=== PATIENT | male | born 1955 | race Caucasian/White ===

== ENCOUNTER 2017-03-08 15:34 | Emergency (ER) | payer BC ==
[2017-03-08] MEDS ORDERED: Fluorescein Sodium TOPICAL* 1 MG TEST OPHTHALMIC ONE (18:14)
[2017-03-08] MEDS ORDERED: Tetracaine 0.5% OPTH.SOL 4 ML* 1 DROP BTL LEFT EYE ONE (18:15)
--- NOTE | 2017-03-08 18:15 | UC ---
Eye Complaint HPI - HPI Summary HPI Summary: Pt presents with right eye pain since last night. He tells me that last night his eye itched, so he scratched it - had immediate pain. He let it go last night , but this morning it was still painful with he is blinking. Feels like there is something stuck under his eyelid. Denies vision changes, headache, dizziness , or other pain. Does not wear contacts. - History of Current Complaint Chief Complaint: UCEye Stated Complaint: EYE COMPLAINT Hx Obtained From: Patient Onset/Duration: Sudden Onset Timing: Constant Severity Initially: Moderate Severity Currently: Moderate Pain Intensity: 7 Pain Scale Used: 0-10 Numeric Location of Injury: Eye Lid (upper), Sclera Character: Foreign Body Sensation Aggravating Factor(s): Nothing - Allergies/Home Medications Allergies/Adverse Reactions: Allergies Allergy/AdvReac Type Severity Reaction Status Date / Time No Known Allergies Allergy Verified 03/08/17 16:49 Home Medications: Home Medications NK [No Home Medications Reported] 03/08/17 [History Confirmed 03/08/17] PMH/Surg Hx/FS Hx/Imm Hx Cardiovascular History: Cardiac Disease, Hypertension - Surgical History Surgical History: Yes Surgery Procedure, Year, and Place: LAZY EYE SURGERY BILATERAL IN 1960s - Family History Known Family History: Positive: Unknown - Social History Lives: With Family Alcohol Use: None Substance Use Type: None Smoking Status (MU): Former Smoker Review of Systems Constitutional: Negative Skin: Negative Eyes: Other - Right eye pain Respiratory: Negative Cardiovascular: Negative Neurological: Negative Psychological: Negative All Other Systems Reviewed And Are Negative: Yes Physical Exam Triage Information Reviewed: Yes Appearance: Well-Appearing, No Pain Distress, Well-Nourished Vital Signs: Initial Vital Signs Temp 97.1 F 03/08/17 16:42 Pulse 76 03/08/17 16:42 Resp 16 03/08/17 16:42 BP 178/93 03/08/17 16:42 Pulse Ox 98 03/08/17 16:42 Vital Signs Reviewed: Yes Eyes: Positive: Conjunctiva Clear, Other: - OD/OS/OU 25/20. Right eye fluorescein exam revealed no scratches, areas of uptake, or eulogio sign. Eyelids were inverted and revealed no FB or nodules. EOMI. PERRLA. Negative: Conjunctiva Inflamed, Discharge Neck: Positive: Supple, Nontender, No Lymphadenopathy Respiratory: Positive: Lungs clear, Normal breath sounds, No respiratory distress, No accessory muscle use Cardiovascular: Positive: RRR, No Murmur, Pulses Normal Neurological: Positive: Alert, Other: - CN II-XII grossly intact Psychological: Positive: Age Appropriate Behavior Eye Complaint Course/Dx - Course Course Of Treatment: No obvious source of his pain on exam today. His pain was relieved after one drop of tetracaine. I will cover him with Polytrim and advise he f/u with his eye doctor tomorrow. - Differential Dx/Diagnosis Provider Diagnoses: Right eye pain Discharge - Discharge Plan Condition: Stable Disposition: HOME Patient Education Materials: Corneal Abrasion (ED) Referrals: Shannon Villarreal MD [Primary Care Provider] - Dk Trevino MD [Medical Doctor] - As Soon As Possible Additional Instructions: If you develop a fever, shortness of breath, chest pain, new or worsening symptoms - please call your PCP or go to the ED. 1) If you experience decreased vision, increased pain or swelling of your head, dizziness, or headache - please go to the ER or call 911. 2) Please call your eye doctor and schedule an appointment within the next 2 days for recheck.
[2017-03-08] MEDS ORDERED: Fluorescein Sod TOPICAL 0.6* 0.6 MG TEST OPHTHALMIC ONE (18:22)
[2017-03-08] MEDS ORDERED: Polymyx/Trimethoprim OPTH* 10 ML BTL RIGHT EYE ONE (18:46)
[2017-03-08 18:48] VITALS: BP 182/90
== END 2017-03-08 18:59 | disposition home or self-care (01) ==
LOC: UCEAST 15:34
DX: H57.11 Ocular pain, right eye (principal); Z87.891 Personal history of nicotine dependence
CPT/HCPCS: 99212; A9270-GY; G0463

== ENCOUNTER 2017-06-10 14:06 | Emergency (ER) | payer BC, OTHER ==
--- NOTE | 2017-06-10 14:45 | UC ---
Lower Extremity/Ankle HPI - HPI Summary HPI Summary: Pt presents with right foot pain s/p dropping a board on it at 1330 today. He was wearing steel toe boots when this happened. Says the board was thick and dropped from about 2 feet above his foot. Currently pain is a 1-2, but has some bruising and swelling. Denies numbness or tingling. Is ambulating without assistance - History of Current Complaint Stated Complaint: FOOT INJURY Time Seen by Provider: 06/10/17 14:45 Hx Obtained From: Patient Onset/Duration: Sudden Onset Severity Initially: Mild Severity Currently: Mild Pain Intensity: 2 Pain Scale Used: 0-10 Numeric Aggravating Factor(s): Standing, Ambulation Alleviating Factor(s): Rest, Elevation Able to Bear Weight: Yes Related History: Occupational Injury - Allergies/Home Medications Allergies/Adverse Reactions: Allergies Allergy/AdvReac Type Severity Reaction Status Date / Time No Known Allergies Allergy Verified 06/10/17 14:51 PMH/Surg Hx/FS Hx/Imm Hx - Additional Past Medical History Additional PMH: None Previously Healthy: Yes - Surgical History Surgical History: Yes Surgery Procedure, Year, and Place: LAZY EYE SURGERY BILATERAL IN 1960s - Family History Known Family History: Positive: Unknown - Social History Occupation: Employed Full-time Lives: With Family Alcohol Use: None Substance Use Type: None Smoking Status (MU): Former Smoker Review of Systems Constitutional: Negative Skin: Bruising - Right foot Respiratory: Negative Cardiovascular: Negative Neurovascular: Negative Musculoskeletal: Other: - Right foot pain Neurological: Negative Psychological: Negative All Other Systems Reviewed And Are Negative: Yes Physical Exam - Summary Physical Exam Summary: GENERAL: NAD. WDWN. No pain distress. SKIN: No rashes, sores, lesions, or open wounds. NECK: Supple. Nontender. No lymphadenopathy. CHEST: No accessory muscle use. Breathing comfortably and in no distress. CV: RRR. Without m/r/g. Pulses intact PT and DP. Brisk cap refill. MSK: Mild TTP over right dorsal midfoot. FROM. Strength 5/5. Mild edema and overlying ecchymosis. No obvious bony deformities. NEURO: Alert. Sensations intact and symmetric B/L LEs PSYCH: Age appropriate behavior. Triage Information Reviewed: Yes Lower Extremity Course/Dx - Course Course Of Treatment: XR: IMPRESSION: NO ACUTE BONY FINDINGS. SOFT TISSUE SWELLING OVER THE MID AND FOREFOOT. HALLUX VALGUS DEFORMITY. - Differential Dx/Diagnosis Provider Diagnoses: Right foot contusion Discharge - Sign-Out/Discharge Documenting (check all that apply): Discharge/Admit/Transfer - Discharge Plan Condition: Stable Disposition: HOME Patient Education Materials: Foot Contusion (ED) Forms: *Work Release Referrals: Shannon Villarreal MD [Primary Care Provider] - Additional Instructions: If you develop a fever, shortness of breath, chest pain, new or worsening symptoms - please call your PCP or go to the ED. Your blood pressure was high at todays visit. Please see your primary provider within 4 weeks for recheck and re-evaluation. 1) Rest, Ice, and Elevate your foot as much as possible over the next 24-48hours 2) May take tylenol of ibuprofen every 6-8hours as needed for pain - Billing Disposition and Condition Condition: STABLE Disposition: HOME
[2017-06-10 14:51] VITALS: BP 170/85
--- NOTE | 2017-06-10 15:23 | RAD ---
INDICATION: Right foot pain COMPARISON: None TECHNIQUE: AP, lateral, and oblique views were obtained. FINDINGS: There are no acute bony findings. There is a prominent hallux valgus deformity with minor osteocytic change about the first MTP joint. There are mild hammertoe deformities. There is soft tissue swelling over the dorsum of the mid and forefoot. IMPRESSION: NO ACUTE BONY FINDINGS. SOFT TISSUE SWELLING OVER THE MID AND FOREFOOT. HALLUX VALGUS DEFORMITY
== END 2017-06-10 15:35 | disposition home or self-care (01) ==
LOC: UCEAST 14:06
DX: S90.31XA Contusion of right foot, initial encounter (principal); W20.8XXA Other cause of strike by thrown, projected or falling object, initial encounter; Y93.H3 Activity, building and construction; Y92.830 Public park as the place of occurrence of the external cause; Y99.0 Civilian activity done for income or pay; M20.11 Hallux valgus (acquired), right foot; Z87.891 Personal history of nicotine dependence
CPT/HCPCS: 99211; G0463

== ENCOUNTER 2018-06-02 14:42 | Emergency (ER) | payer OTHER ==
[2018-06-02] MEDS ORDERED: Lidocaine 1%* 5 ML VIAL INJ ONE (16:33)
[2018-06-02] MEDS ORDERED: Tetan/Diph/Pertus SYR(Tdap)* 0.5 ML SYR(BOOSTRIX) use SYR IM ONE (16:44)
--- NOTE | 2018-06-02 17:32 | ED ---
Laceration/Wound HPI - HPI Summary HPI Summary: Patient is a 62-year-old male who presents emergency department for laceration to his left thumb that occurred just prior to arrival. Patient states he was using a table saw to cut wood when he actually cut left thumb. He is unaware of his last tetanus immunization. No significant past medical history. Symptoms are mild in severity. Touching affected area makes symptoms worse. Rest makes symptoms better. - History of Current Complaint Stated Complaint: LEFT THUMB LACERATION PER PT Time Seen by Provider: 06/02/18 16:34 Hx Obtained From: Patient Pain Intensity: 5 - Allergy/Home Medications Allergies/Adverse Reactions: Allergies Allergy/AdvReac Type Severity Reaction Status Date / Time No Known Allergies Allergy Verified 06/02/18 14:50 PMH/Surg Hx/FS Hx/Imm Hx Previously Healthy: Yes Endocrine/Hematology History: Denies: Hx Diabetes Cardiovascular History: Reports: Hx Hypertension - INTERMITTENTLY MEDICATED Denies: Hx Congestive Heart Failure, Hx Pacemaker/ICD, Other Cardiovascular Problems/Disorders - DENIES Respiratory History: Denies: Other Respiratory Problems/Disorders - DENIES History: Denies: Hx Renal Disease Sensory History: Denies: Hx Hearing Aid Psychiatric History: Denies: Hx Panic Disorder - Surgical History Surgery Procedure, Year, and Place: LAZY EYE SURGERY BILATERAL IN 1960s Infectious Disease History: No Infectious Disease History: Denies: Traveled Outside the [place] in Last 30 Days - Family History Known Family History: Positive: Unknown, Non-Contributory - Social History Occupation: Employed Full-time Lives: With Family Alcohol Use: None Substance Use Type: Reports: None Smoking Status (MU): Former Smoker Review of Systems Positive: Other - laceration to left thumb Negative: Weakness, Paresthesia, Numbness All Other Systems Reviewed And Are Negative: Yes Physical Exam Triage Information Reviewed: Yes Vital Signs On Initial Exam: Initial Vitals Temp Pulse Resp BP Pulse Ox 99.2 F 81 18 204/99 95 06/02/18 14:46 06/02/18 14:46 06/02/18 14:46 06/02/18 14:46 06/02/18 14:46 Vital Signs Reviewed: Yes Appearance: Positive: Well-Appearing - Pt. sitting on bed in NAD. Daughter present. Skin: Positive: Warm, Dry Head/Face: Positive: Normal Head/Face Inspection Eyes: Positive: Normal, EOMI Neck: Positive: Supple Musculoskeletal: Positive: Other - 3 cm linear laceration noted to the distal aspect of left thumg on the palmar aspect. Avulsion noted to center of wound given saw injury. No bony tenderness on palpation. Full ROM with flexion and extension. Neurological: Positive: Normal, CN Intact II-III Psychiatric: Positive: Affect/Mood Appropriate Procedures - Laceration/Wound Repair 1 Location: upper extremity - left thumb Description: Linear Anesthesia: Local, 1.0% Length, Depth and Shape: 3 cm linear Betadine Prep?: No - hibiclens Irrigated w/ Saline (ccs): 150 Laceration/Wound Explored: clean Suture Type: Nylon - 4-0 Number of Sutures: 5 Layer Closure?: No Sterile Dressing Applied?: Yes Diagnostics - Vital Signs Vital Signs Temp Pulse Resp BP Pulse Ox 06/02/18 14:46 99.2 F 81 18 204/99 95 - Laboratory Lab Statement: Any lab studies that have been ordered have been reviewed, and results considered in the medical decision making process. Laceration Repair Course/Dx - Course Course Of Treatment: Patient presenting with thumb laceration from table saw. Tetanus was updated. He has no bony tenderness. Wound was cleaned and wound edges approximated. Given hand laceration will proactively treat with Keflex. Suture removal in 7-10 days. Keep the wound clean and dry. Return to the ear for redness, swelling or drainage from wound. - Differential Dx Differental Diagnoses: Laceration - Clinical Impression Provider Diagnoses: Laceration of thumb Discharge - Sign-Out/Discharge Documenting (check all that apply): Patient Departure Patient Received Moderate/Deep Sedation with Procedure: No - Discharge Plan Condition: Improved Disposition: HOME Prescriptions: Cephalexin CAP* [Keflex CAP*] 500 mg PO BID #20 cap Patient Education Materials: Laceration (ED) Referrals: Shannon Villarreal MD [Primary Care Provider] - Additional Instructions: Suture removal in 7-10 days Antibiotic as directed Keep wound clean and dry Tylenol or Motrin for pain as directed Return to ER for redness, swelling, or drainage from wound - Billing Disposition and Condition Condition: IMPROVED Disposition: Home
[2018-06-02 17:46] VITALS: BP 173/90
== END 2018-06-02 17:45 | disposition home or self-care (01) ==
LOC: ED 14:42
DX: S61.012A Laceration without foreign body of left thumb without damage to nail, initial encounter (principal); W31.2XXA Contact with powered woodworking and forming machines, initial encounter; Y93.9 Activity, unspecified; Y92.9 Unspecified place or not applicable; Y99.8 Other external cause status; Z87.891 Personal history of nicotine dependence
CPT/HCPCS: 12002; 90715; 96372; 96374; 99281